=== PATIENT | female | born 1955 | race American Indian/Alaskan Native ===

== ENCOUNTER 2017-09-15 12:15 | Emergency (ER) | payer BC ==
[2017-09-15 12:53] LABS: Basophils % (Auto) 0.6 % (0.0-1.8); Eosinophils # (Auto) 0.2 K/mm3 (0.0-0.4); Eosinophils % (Auto) 2.7 % (0.0-4.3); Hematocrit 43.2 % (30.3-42.9); Hemoglobin 14.9 gm/dl (10.1-14.3); Lymphocytes # (Auto) 1.6 K/mm3 (1.2-5.4); Lymphocytes % (Auto) 23.8 % (13.4-35.0); Mean Corpuscular HGB Conc 34 % (30-34); Mean Corpuscular Hemoglobin 30 pg (28-32); Mean Corpuscular Volume 88 fl (79-97); Monocytes # (Auto) 0.5 K/mm3 (0.0-0.8); Platelet Count 220 K/mm3 (140-440); Red Blood Count 4.89 M/mm3 (3.65-5.03); Red Cell Distribution Width 12.5 % (13.2-15.2)
--- NOTE | 2017-09-15 13:00 | Cat Scan Report ---
CT HEAD WITHOUT CONTRAST: HISTORY: Neurological deficit, stroke. TECHNIQUE: Sequential CT images without contrast. FINDINGS: No comparison. A 2.4 x 2.3 cm right thalamic acute hemorrhage is identified. There is no significant mass effect. No intraventricular extension is appreciated. No obvious mass or large area of acute ischemia. No extra-axial fluid collection. There is mild diffuse cortical volume loss and mild nonspecific chronic white matter changes. Ventricular size is within normal limits. No large chronic infarct. The cerebellum is unremarkable. The calvarium is intact. The sinuses and mastoid air cells are well-aerated. IMPRESSION: Acute right thalamic hemorrhage as outlined above. These findings were discussed with Dr. Orona in the emergency department at 1248 hrs.
[2017-09-15] MEDS ORDERED: APRESOLINE IV ONE (13:02)
[2017-09-15 13:03] LABS: INR 0.87 (0.87-1.13)
[2017-09-15 13:04] LABS: Partial Thromboplastin Time 30.9 Sec. (24.2-36.6)
[2017-09-15 13:13] LABS: BUN/Creatinine Ratio 18; Blood Urea Nitrogen 9 mg/dL (7-17); Calcium 9.1 mg/dL (8.4-10.2); Hemolysis Index 12
[2017-09-15] MEDS ORDERED: TYLENOL ONE (13:23)
--- NOTE | 2017-09-15 13:35 | Emergency Department Report ---
- General Chief complaint: Weakness Stated complaint: TROUBLE WALKING AND TALKING Time Seen by Provider: 09/15/17 12:38 Source: patient Mode of arrival: Wheelchair Limitations: Other - History of Present Illness Initial comments: Patient came home last night while working day cocaine. Shortly thereafter, patient had a sudden onset headache and passed out. Her son found her on the floor at home. Afterwards, patient had a persistent headache with left face/arm /leg weakness/numbness. She took 162 mg aspirin for headache. Symptoms continue to worsen and she called her family member to bring her to the hospital today. Not on any blood thinners. This never happened before. - Related Data Home Medications Medication Instructions Recorded Confirmed Last Taken Aspirin [Aspirin EC] 81 mg PO DAILY 09/15/17 09/15/17 09/15/17 Allergies Allergy/AdvReac Type Severity Reaction Status Date / Time No Known Allergies Allergy Verified 09/15/17 12:23 ED Review of Systems ROS: Stated complaint: TROUBLE WALKING AND TALKING Other details as noted in HPI Comment: All other systems reviewed and negative Neurological: headache, weakness, abnormal gait, other (dysarthria) ED Past Medical Hx - Surgical History Additional Surgical History: hysterectomy - Social History Smoking Status: Current Every Day Smoker Substance Use Type: None, Cocaine - Medications Home Medications: Home Medications Medication Instructions Recorded Confirmed Last Taken Type Aspirin [Aspirin EC] 81 mg PO DAILY 09/15/17 09/15/17 09/15/17 History ED Physical Exam - General Limitations: Other General appearance: alert (GCS 15), in no apparent distress - Head Head exam: Present: atraumatic, normocephalic - Eye Eye exam: Present: normal appearance - ENT ENT exam: Present: mucous membranes moist - Neck Neck exam: Present: normal inspection - Respiratory Respiratory exam: Present: normal lung sounds bilaterally. Absent: respiratory distress - Cardiovascular Cardiovascular Exam: Present: regular rate, normal rhythm. Absent: systolic murmur, diastolic murmur, rubs, gallop - GI/Abdominal GI/Abdominal exam: Present: soft. Absent: tenderness - Extremities Exam Extremities exam: Present: normal inspection - Back Exam Back exam: Present: normal inspection - Neurological Exam Neurological exam: Present: alert, oriented X3, other (left face and upper and lower numbness, left arm/leg decreased sensation, left arm/leg 4 out of 5 strength) - Psychiatric Psychiatric exam: Present: normal affect, normal mood - Skin Skin exam: Present: warm, dry, intact, normal color. Absent: rash ED Course Vital Signs 09/15/17 12:23 Temperature 98.2 F Pulse Rate 81 Respiratory 20 Rate Blood Pressure 196/124 O2 Sat by Pulse 98 Oximetry ED Medical Decision Making - Lab Data Result diagrams: 09/15/17 12:47 09/15/17 12:47 - Medical Decision Making 62-year-old female with past history cocaine abuse that presents with sudden onset headache with left-sided neuro symptoms. CT head shows right-sided thalamic stroke with 2.3 cm she had according to the radiologist. Lab work is unremarkable. Patient is hypertensive with a systolic blood pressure of 190/ 120 on arrival. Patient has been given hydralazine and Cardizem to lower her blood pressure. Her GCS is 15 and she is protecting her airway. The patient has be transferred to [facility] for further care. Critical care time in (mins) excluding proc time.: 65 Critical care attestation.: If time is entered above; I have spent that time in minutes in the direct care of this critically ill patient, excluding procedure time. ED Disposition Clinical Impression: Intracranial hemorrhage, Cocaine abuse Disposition: DC/TX-70 ANOTHER TYPE HLTHCARE Is pt being admited?: No Does the pt Need Aspirin: No Condition: Stable
[2017-09-15] MEDS ORDERED: CARDENE 50 MG in NACL 0.9% 250ML 230 ML IV SCH (14:00)
[2017-09-15 15:07] VITALS: BP 113/63
== END 2017-09-15 15:00 | disposition other institution (70) ==
LOC: ED 12:15
DX: I62.9 Nontraumatic intracranial hemorrhage, unspecified (principal); F14.10 Cocaine abuse, uncomplicated; F17.200 Nicotine dependence, unspecified, uncomplicated
CPT/HCPCS: 36415; 70450; 80048; 82962; 84484; 85025; 85610; 85670; 85730; 93005; 93010; 96365; 96375; 99291; J0360; J7050

== ENCOUNTER 2020-09-14 13:08 | Emergency (ER) | payer BC, MEDICAID ==
--- NOTE | 2020-09-14 14:34 | Event Note ---
ED Screening Note Date of service: 09/14/20 Time: 14:34 ED Screening Note: Patient complains of elevated blood pressure today History of hypertension States she has been having dizziness since yesterday Denies chest pain, shortness of breath, or headache This initial assessment/diagnostic orders/clinical plan/treatment(s) is/are subject to change based on patients health status, clinical progression and re- assessment by fellow clinical providers in the ED. Further treatment and workup at subsequent clinical providers discretion. Patient/guardian urged not to elope from the ED as their condition may be serious if not clinically assessed and managed. Initial orders include: Labs EKG
[2020-09-14 16:00] LABS: Bacteria,Urine 1+ /HPF (Negative); Bilirubin,Urine NEG (Negative); Blood,Urine NEG (Negative); Color,Urine Straw (Yellow); Protein,Urine <15 mg/dL mg/dL (Negative); Urobilinogen,Urine < 2.0 mg/dL (<2.0); WBC,Urine < 1.0 /HPF (0.0-6.0)
[2020-09-14 16:03] LABS: Basophils % (Auto) 0.4 % (0.0-1.8); Eosinophils % (Auto) 0.1 % (0.0-4.3); Hematocrit 43.2 % (30.3-42.9); Hemoglobin 14.5 gm/dl (10.1-14.3); Lymphocytes # (Auto) 1.5 K/mm3 (1.2-5.4); Lymphocytes % (Auto) 19.4 % (13.4-35.0); Mean Corpuscular HGB Conc 34 % (30-34); Mean Corpuscular Volume 86 fl (79-97); Monocytes # (Auto) 0.3 K/mm3 (0.0-0.8); Monocytes % (Auto) 3.5 % (0.0-7.3); Platelet Count 271 K/mm3 (140-440); Red Blood Count 5.03 M/mm3 (3.65-5.03); Red Cell Distribution Width 13.6 % (13.2-15.2)
[2020-09-14 16:26] LABS: Alanine Aminotransferase 20 units/L (7-56); Albumin 4.3 g/dL (3.9-5); Blood Urea Nitrogen 11 mg/dL (7-17); Calcium 9.5 mg/dL (8.4-10.2); Hemolysis Index 13
[2020-09-14 16:31] LABS: BUN/Creatinine Ratio 18
--- NOTE | 2020-09-14 19:27 | Emergency Department Report ---
ED Headache HPI - General Chief Complaint: High BP Stated Complaint: HIGH BLOOD PRESSURE Time Seen by Provider: 09/14/20 14:34 Source: patient - History of Present Illness Initial Comments: 65-year-old female, history of hypertension, presents to ED with headache and dizziness. Patient reports onset while at work. She reports some associated nausea and vomiting. Patient transported to the ED. She currently denies any dizziness. States she is able to ambulate. States she only has a slight headac he at this time. Patient reports she is compliant with her BP medication, however, she does not know the name of that medication is. Patient denies any chest pain or shortness of breath. Patient reports she has been fully vaccinated for COVID-19. Timing/Duration: 4-6 hours Quality: moderate Recent Head Trauma: no recent headache/trauma Associated Symptoms: nausea/vomiting. denies: fever/chills, stiff neck, vision changes, weakness Allergies/Adverse Reactions: Allergies No Known Allergies Allergy (Verified 09/14/20 14:31) Home Medications: Ambulatory Orders Aspirin [Aspirin EC] 81 mg PO DAILY 09/15/17 ED Review of Systems ROS: Stated complaint: HIGH BLOOD PRESSURE Other details as noted in HPI Comment: All other systems reviewed and negative Constitutional: denies: chills, fever Respiratory: denies: cough, shortness of breath Cardiovascular: denies: chest pain Gastrointestinal: nausea, vomiting Neurological: headache. denies: weakness, numbness ED Past Medical Hx - Past Medical History Hx Hypertension: Yes Hx GERD: Yes - Surgical History Additional Surgical History: hysterectomy - Social History Smoking Status: Never Smoker Substance Use Type: None - Medications Home Medications: Home Medications Medication Instructions Recorded Confirmed Last Taken Type Aspirin [Aspirin EC] 81 mg PO DAILY 09/15/17 09/15/17 09/15/17 History ED Physical Exam - General Limitations: No Limitations General appearance: alert, in no apparent distress - Head Head exam: Present: atraumatic, normocephalic - Eye Eye exam: Present: normal appearance, EOMI - ENT ENT exam: Present: mucous membranes moist - Neck Neck exam: Present: normal inspection. Absent: meningismus - Respiratory Respiratory exam: Present: normal lung sounds bilaterally. Absent: respiratory distress - Cardiovascular Cardiovascular Exam: Present: regular rate, normal rhythm - GI/Abdominal GI/Abdominal exam: Present: soft. Absent: distended, tenderness - Extremities Exam Extremities exam: Present: normal inspection - Neurological Exam Neurological exam: Present: alert, oriented X3, CN II-XII intact. Absent: motor sensory deficit - Psychiatric Psychiatric exam: Present: normal affect, normal mood - Skin Skin exam: Present: warm, dry, intact, normal color ED Course Vital Signs 09/14/20 09/14/20 09/14/20 14:30 19:30 19:35 Temperature 98.7 F Pulse Rate 77 87 Respiratory 18 18 Rate Blood Pressure 208/109 Blood Pressure 185/105 208/109 [Left] O2 Sat by Pulse 97 97 99 Oximetry 09/14/20 09/14/20 09/14/20 19:45 20:00 20:14 Temperature Pulse Rate Respiratory 18 Rate Blood Pressure 208/109 207/102 Blood Pressure [Left] O2 Sat by Pulse 94 Oximetry 09/14/20 09/14/20 09/14/20 20:16 20:48 21:00 Temperature Pulse Rate 81 86 Respiratory 24 19 Rate Blood Pressure 202/112 211/94 172/103 Blood Pressure [Left] O2 Sat by Pulse 97 97 95 Oximetry 09/14/20 09/14/20 09/14/20 21:22 21:30 21:46 Temperature Pulse Rate 85 81 81 Respiratory 23 16 18 Rate Blood Pressure 202/112 146/90 143/84 Blood Pressure [Left] O2 Sat by Pulse 93 91 92 Oximetry 09/14/20 09/14/20 09/14/20 22:00 22:16 22:30 Temperature Pulse Rate 77 86 76 Respiratory 17 18 17 Rate Blood Pressure 137/80 134/80 139/77 Blood Pressure [Left] O2 Sat by Pulse 98 98 98 Oximetry 09/14/20 09/14/20 09/14/20 22:46 23:00 23:16 Temperature Pulse Rate 79 80 71 Respiratory 16 18 16 Rate Blood Pressure 129/76 142/85 129/76 Blood Pressure [Left] O2 Sat by Pulse 98 97 97 Oximetry 09/14/20 09/14/20 09/15/20 23:30 23:46 00:00 Temperature Pulse Rate 76 71 69 Respiratory 16 16 16 Rate Blood Pressure 112/76 131/77 120/75 Blood Pressure [Left] O2 Sat by Pulse 98 98 98 Oximetry 09/15/20 09/15/20 09/15/20 00:16 00:30 00:46 Temperature Pulse Rate 69 71 71 Respiratory 16 15 16 Rate Blood Pressure 126/78 136/80 142/87 Blood Pressure [Left] O2 Sat by Pulse 98 97 97 Oximetry 09/15/20 09/15/20 01:00 01:16 Temperature Pulse Rate 75 70 Respiratory 21 16 Rate Blood Pressure 149/85 129/76 Blood Pressure [Left] O2 Sat by Pulse 97 97 Oximetry - Reevaluation(s) Reevaluation #1: 09/14/20 22:30 BP 139/77. Patient stable. GCS remains 15. 09/14/20 23:30 BP stable. GCS remains 15. Patient has no complaints. We are awaiting bed assignment at [facility]. 09/15/20 00:30 GCS remains 15. Patient is stable. Still awaiting bed assignment. 09/15/20 01:45 GCS remains 15. Patient is stable. Still awaiting bed assignment. - Consultations Consultation #1: 09/14/20 20:40 [facility] transfer line contacted secondary to intraventricular hemorrhage on CT. Awaiting callback. 09/14/20 20:53 Spoke w/ Dr Cristobal @ [facility]. States only 1 ICU bed remaining and may have bounce back of step down pt to ICU. Pt would rather [facility] than [facility]. Will call [facility] 09/14/20 21:14 Spoke w/ Dr Escalante, NSGY at [facility]. Spoke w/ Dr Penny, neurocritical care. States no available beds right now. He will discuss w/ his charge nurse and call back. 09/14/20 21:29 Dr Penny accepts transfer to [facility]. States they just need to clean a room for the pt. ED Medical Decision Making - Lab Data Result diagrams: 09/14/20 15:45 09/14/20 15:45 - EKG Data -: EKG Interpreted by Ne EKG shows normal: sinus rhythm, axis, intervals, QRS complexes, ST-T waves Rate: normal - EKG Data Interpretation: no acute changes - Radiology Data Radiology results: report reviewed, image reviewed - Medical Decision Making 65-year-old female presents to ED with headache, vomiting, dizziness, and elevated blood pressure. Patient had a prolonged wait in the waiting room. Upon placing her in a treatment room, patient was found to still be hype rtensive, so CT head was ordered. CT shows intraventricular hemorrhage. Patient denies being on any blood thinners. She actually reports resolution of headache and dizziness at this time. Patient is GCS of 15, no neuro deficits on exam. Cardene drip initiated for goal systolic BP of less than 160. Keppra load given for seizure prophylaxis. She has been accepted by Dr. Penny, neuro dray driver, at [facility]. Awaiting transport. Critical Care Time: Yes Critical care time in (mins) excluding proc time.: 35 Critical care attestation.: If time is entered above; I have spent that time in minutes in the direct care o f this critically ill patient, excluding procedure time. Critical Care Time: 35 min ED Disposition Clinical Impression: Intraventricular hemorrhage Disposition: DC/TX-70 ANOTHER TYPE HLTHCARE Is pt being admited?: No Condition: Stable Referrals: PRIMARY CARE, [Primary Care Provider] - 3-5 Days
[2020-09-14] MEDS ORDERED: cloNIDine 0.2 MG TAB PO ONE (19:39)
--- NOTE | 2020-09-14 20:33 | Cat Scan Report ---
CT head/brain wo con INDICATION / CLINICAL INFORMATION: 65 years Female; Headache, dizziness. TECHNIQUE: Routine CT head without contrast. All CT scans at this location are performed using CT dos e reduction for ALARA by means of automated exposure control. COMPARISON: None. FINDINGS: BRAIN / INTRACRANIAL CONTENTS: Blood products are seen in the lateral, third, and fourth ventricles. Mild dilatation of the lateral ventricles and third ventricle noted-some component of developing obst ructive hydrocephalus is suspected. Otherwise, no acute hemorrhage, mass effect, midline shift, or acute, large territorial infarct. Mil d, diffuse cerebral atrophy noted. There are moderate areas of decreased attenuation in the white matter of the cerebral hemispheres, as well as the gangliocapsular regions. These are nonspecific findings and may be related to microangio kelly (hypertension, diabetes, atherosclerosis), given the patient's age. CRANIOCERVICAL JUNCTION: No significant abnormality. ORBITS: No significant abnormality of visualized orbits. SINUSES / MASTOIDS: Visualized paranasal sinuses and mastoid air cells are essentially clear. ADDITIONAL FINDINGS: Atherosclerotic disease is seen in the anterior circulation. IMPRESSION: 1. Intraventricular hemorrhage as described above resulting in hydrocephalus. CRITICAL RESULT: Exam Completed (AREA PLANT MANAGER/CDT): 09/14/2020 7:18 PM Exam Reviewed (AREA PLANT MANAGER/CDT): 7:23 PM Time of Communication (AREA PLANT MANAGER/CDT): 7:28 PM Licensed Practitioner Receiving Report: Dr. Hsu Signer Name: Darren Dolan MD, III Signed: 09/14/2020 8:28 PM Workstation Name: [id number]
[2020-09-14] MEDS ORDERED: niCARdipine DRIP 40 MG/200 ML BAG ONE (20:42)
[2020-09-14] MEDS ORDERED: niCARdipine DRIP 40 MG/200 ML BAG IV ONE (20:43)
[2020-09-14 20:56] LABS: INR 0.98 (0.87-1.13)
[2020-09-14] MEDS ORDERED: levETIRAcetam 1,000 MG in SODIUM CHLORIDE 0.9% 100 ML IV ONE (21:13)
[2020-09-14] MEDS ORDERED: levETIRAcetam 1000 MG/NS 0.75% 1,000 MG/100 ML BAG IV ONE (22:00)
[2020-09-15 04:04] VITALS: BP 130/71
--- NOTE | 2020-09-16 13:38 | Electrocardiograph Report ---
[facility] Test Date: 2020-09-14 Test Time: 14:35:34 Pat Name: JODI SCRUGGS Department: Room: Gender: F [employer] Driver: URIEL : 1955 Requested By: [place] JOHNSON Order Number: [id number] Reading MD: René Moran Measurements Intervals [place] Rate: 80 P: 67 WA: 152 QRS: 13 QRSD: 83 T: 37 QT: 370 QTc: 428 Interpretive Statements Sinus rhythm No previous ECG available for comparison Electronically Signed On 09-16-2020 13:38:41 EDT by René Moran
== END 2020-09-15 04:06 | disposition other institution (70) ==
LOC: ED 13:08
DX: I61.5 Nontraumatic intracerebral hemorrhage, intraventricular (principal); I10 Essential (primary) hypertension; K21.9 Gastro-esophageal reflux disease without esophagitis; Z90.710 Acquired absence of both cervix and uterus; Z79.899 Other long term (current) drug therapy
CPT/HCPCS: 36415; 70450; 80053; 81001; 84484; 85025; 85610; 85730; 93005; 96365; 96366; 96367; 99291; J1953